=== PATIENT | male | born 1950 | race Caucasian/White ===

== ENCOUNTER 2017-02-01 14:41 | Observation (INO) | payer MEDICARE ==
[~2017-02-01] VITALS: Ht 195.6 cm; Wt 165.0 kg
[~2017-02-01 14:41] MED LIST: AFLUZOSIN PO; ALEVE220 M1 PO; ALFUZOSIN HCL E10 MG PO; APRESOLINE25 MG/TAB PO; ASPIRIN ADULT L81 MG PO; CIPRO XR500 MG PO; COZAAR100 MG PO; DEXILANT60 MG PO; DYAZIDE1 CAP PO; FLAGYL500 MG PO; HYDROCODONE/ACE1 TAB PO; LASIX 40 MG TAB40 MG PO; LEVOXYL200 MCG PO; LIPITOR20 M1 PO; LOPRESSOR50 M1 PO; MAXZIDE-2537.5 MG/TA PO; MEDDOSEPAK PO; METFORMIN500 MG PO; PLAVIX75 MG PO; SYNTHROID300 MCG PO; VALIUM5 MG PO; VICODIN ES1 TA1 PO; VOLTAREN TOP; VOLTAREN1%GEL TOP; ZOLOFT50 MG PO
[2017-02-01] MEDS ORDERED: CARVEDILOL6.25 MG PO (15:01)
[2017-02-01] MEDS ORDERED: ASPIRIN81 MG PO (15:01)
[2017-02-01] MEDS ORDERED: SPIRONOLACT25 MG PO (15:02)
[2017-02-01 15:15] LABS: HEMATOCRIT 43.2 % (39.0-50.0); HEMOGLOBIN 14.2 g/dl (14.0-18.0); IMMATURE GRANULOCYTES 0.3 % (0.0-1.0); MEAN CELL VOLUME 94.1 fL CALC (80.0-100.0); MEAN CORPUSCULAR HGB 30.9 pG CALC (26.0-32.0); MEAN CORPUSCULAR HGB CONC 32.9 g/L CALC (32.0-36.0); NEUT# 4.34 thou/uL (1.82-7.42); RED BLOOD COUNT 4.59 mill/uL (4.70-6.10); RED CELL DISTRI WIDTH 13.1 % (11.5-15.5)
[2017-02-01 15:33] LABS: ALBUMIN 4.1 g/dL (3.2-5.0); ALKALINE PHOSPHATASE 76 u/l (38-126); AMYLASE 62 u/l (30-110); ANION GAP 19 (6-22 (CALC)); BILIRUBIN, TOTAL 0.7 mg/dL (0.0-1.4); BUN 19 mg/dL (8-23); BUN/CREATININE RATIO 19 (12-20 (CALC)); CALCIUM 8.8 mg/dL (8.4-10.2); CARBON DIOXIDE 21 mmol/l (22-30); CHLORIDE 104 mmol/l (95-108); GFR > 60 ML/MIN (>=60 (CALC)); GFR FOR AFR.AMER. > 60 ML/MIN (>=60 (CALC)); GLUCOSE 189 mg/dL (82-115); LIPASE 65 u/l (23-300); POTASSIUM 4.9 mmol/l (3.5-5.1); SGOT/AST 38 u/l (19-48); SGPT/ALT 32 u/l (11-66); SODIUM 139 mmol/l (137-146); TOTAL PROTEIN 7.2 g/dL (6.3-8.2)
[2017-02-01 15:44] LABS: MYOGLOBIN 64 ng/mL (0 - 121)
[2017-02-01 17:01] LABS: URINE BILIRUBIN - DIPSTICK NEGATIVE (NEGATIVE); URINE BLOOD DIPSTICK NEGATIVE (NEGATIVE); URINE CLARITY CLEAR; URINE COLOR YELLOW; URINE GLUCOSE - DIPSTICK NEGATIVE (NEGATIVE); URINE KETONE NEGATIVE (NEGATIVE); URINE LEUK ESTERASE NEGATIVE (NEGATIVE); URINE NITRITE - DIPSTICK NEGATIVE (Negative); URINE PROTEIN - DIPSTICK NEGATIVE (NEG-TRACE); URINE UROBILINOGEN - DIPSTICK 0.2 E.U./dL (0.2)
[2017-02-01 19:35] VITALS: BP 155/54
[2017-02-01 23:25] VITALS: BP 144/69
[2017-02-02 03:04] LABS: HEMATOCRIT 42.3 % (39.0-50.0); HEMOGLOBIN 14.1 g/dl (14.0-18.0); MEAN CELL VOLUME 93.8 fL CALC (80.0-100.0); MEAN CORPUSCULAR HGB 31.3 pG CALC (26.0-32.0); MEAN CORPUSCULAR HGB CONC 33.3 g/L CALC (32.0-36.0); RED BLOOD COUNT 4.51 mill/uL (4.70-6.10)
[2017-02-02 03:21] LABS: ANION GAP 13 (6-22 (CALC)); BUN 19 mg/dL (8-23); BUN/CREATININE RATIO 20 (12-20 (CALC)); CALCIUM 8.9 mg/dL (8.4-10.2); CALCULATED LDLCHOLESTEROL 28 mg/dL (62-129 (CALC)); CARBON DIOXIDE 27 mmol/l (22-30); CHLORIDE 103 mmol/l (95-108); CHOLESTEROL HDL RATIO 2.4 (<4.4 (CALC)); CREATININE 0.9 mg/dL (0.7-1.3); GFR > 60 ML/MIN (>=60 (CALC)); GFR FOR AFR.AMER. > 60 ML/MIN (>=60 (CALC)); GLUCOSE 147 mg/dL (82-115); HDL CHOLESTEROL 35 mg/dL (>=40); POTASSIUM 4.4 mmol/l (3.5-5.1); SODIUM 138 mmol/l (137-146); TOTAL CHOLESTEROL 86 mg/dl (0-199); TOTAL TRIGLYCERIDES 110 mg/dl (30-149); VLDL CHOLESTROL 22 mg/dl (4-45 (CALC))
[2017-02-02 04:07] VITALS: BP 112/66
[2017-02-02 09:32] VITALS: BP 129/77
[2017-02-02 09:44] VITALS: BP 129/77
== END 2017-02-02 11:11 | disposition home or self-care (01) ==
LOC: ED 14:41 → ED-I 16:05 → ED 16:46 → MS2 16:47
PROVIDERS: Emergency Medicine; ADMIT Internal Medicine; ATTEND Internal Medicine
DX: F41.9 Anxiety disorder, unspecified (principal); I25.10 Atherosclerotic heart disease of native coronary artery without angina pectoris; I10 Essential (primary) hypertension; E11.9 Type 2 diabetes mellitus without complications; E03.9 Hypothyroidism, unspecified; Z87.442 Personal history of urinary calculi; Z95.5 Presence of coronary angioplasty implant and graft; G25.0 Essential tremor; C44.91 Basal cell carcinoma of skin, unspecified; R07.89 Other chest pain

== ENCOUNTER 2017-07-27 07:37 | Day surgery (SDC) | payer MEDICARE ==
[~2017-07-27] VITALS: Ht 195.6 cm; Wt 158.8 kg
[~2017-07-27 07:37] MED LIST changes: +ASPIRIN81 MG PO; +CARVEDILOL6.25 MG PO; +SPIRONOLACT25 MG PO
[2017-07-27 09:05] VITALS: BP 114/57
== END 2017-07-27 09:24 | disposition home or self-care (01) ==
LOC: ORM 07:37
PROVIDERS: ATTEND Anesthesiology Pain Medicine
PROC: 3E0R33Z Introduction of Anti-inflammatory into Spinal Canal, Percutaneous Approach (ICD-10-PCS; principal; 2017-07-27)
PROC: B01B1ZZ Fluoroscopy of Spinal Cord using Low Osmolar Contrast (ICD-10-PCS; 2017-07-27)
DX: M54.5 Low back pain (principal); M43.07 Spondylolysis, lumbosacral region; M43.17 Spondylolisthesis, lumbosacral region
CPT/HCPCS: Q9967

== ENCOUNTER 2017-08-24 06:31 | Day surgery (SDC) | payer MEDICARE ==
[~2017-08-24] VITALS: Ht 195.6 cm; Wt 152.0 kg
[2017-08-24 10:05] VITALS: BP 114/57
== END 2017-08-24 09:25 | disposition home or self-care (01) ==
LOC: ORM 06:31
PROVIDERS: ATTEND Anesthesiology Pain Medicine
PROC: 3E0R33Z Introduction of Anti-inflammatory into Spinal Canal, Percutaneous Approach (ICD-10-PCS; principal; 2017-08-24)
PROC: B01B1ZZ Fluoroscopy of Spinal Cord using Low Osmolar Contrast (ICD-10-PCS; 2017-08-24)
DX: M54.5 Low back pain (principal); M48.07 Spinal stenosis, lumbosacral region; M43.17 Spondylolisthesis, lumbosacral region
CPT/HCPCS: Q9967

== ENCOUNTER → 2018-07-18 | Outpatient (REF) | payer MEDICARE ==
[2018-07-18 08:28] VITALS: BP 155/87
== END | disposition home or self-care (01) ==
LOC: PAIN/MGT 08:10
PROVIDERS: ATTEND Anesthesiology Pain Medicine
DX: Z09 Encounter for follow-up examination after completed treatment for conditions other than malignant neoplasm (principal)

== ENCOUNTER 2018-07-19 06:52 | Day surgery (SDC) | payer MEDICARE ==
[2018-07-19] MEDS ORDERED: HYDROCODONE/ACE1 TAB PO (09:28)
[2018-07-19 09:41] VITALS: BP 134/61
[2018-08-01] MEDS ORDERED: HYDROCODONE/ACE1 TAB PO (08:51)
== END 2018-07-19 08:45 | disposition home or self-care (01) ==
LOC: ORM 06:52
PROVIDERS: ATTEND Anesthesiology Pain Medicine
PROC: 3E0T3TZ Introduction of Destructive Agent into Peripheral Nerves and Plexi, Percutaneous Approach (ICD-10-PCS; principal; 2018-07-19)
PROC: BR141ZZ Fluoroscopy of Cervical Facet Joint(s) using Low Osmolar Contrast (ICD-10-PCS; 2018-07-19)
DX: M54.2 Cervicalgia (principal)